=== PATIENT | male | born 1945 | race Caucasian/White ===

== ENCOUNTER → 2018-09-19 | Outpatient (CLI) | payer OTHER, BC ==
[~2018-09-19] MED LIST: BUSPIRONE HCL10 MG PO; BYSTOLIC 5 MG5 M1 PO; CLONAZEPAM 0.50.5 M1 PO; FISH OIL 1,001000 M2 PO; FISH OIL 1,2001 EAC4 PO; FLEXERIL PO; HYDROCODON-ACE1 EAC5 PO; LEXAPRO 10 MG T10 M2 PO; LEXAPRO20 MG PO; LIPITOR 20 MG T20 M1 PO; LIVALO1 MG PO; LIVALO2 MG PO; LUBRICANT EYE D15 M2 OPHTHALMIC; MULTIVITAMINS PO; NORCO 10-325 T1 EACH PO; NORCO 5-325 TA1 EACH PO; OXYCONTIN10 M1 PO; PRENATAL PO; Prenatal Vitamin PO; ROBAXIN 750 MG750 M1 PO; XANAX 0.25 MG0.25 MG PO; XANAX 0.5 MG0.5 M1 PO; XANAX 0.5 MG0.5 MG PO
--- NOTE | 2018-09-19 17:00 | EKG ---
[place] [address] [facility] [place] [address] ELECTROCARDIOGRAM REPORT Name: NIKKIE RANDLE Room #: REG [facility]#: [id number] ������������������ Admission: 09/19/18 ������������������ Attend Phys: Tanmay Murillo MD Discharge: ������������������ Date of : 47 Report #: [id number] ����������������������������������������������������������������� [id number] THIS REPORT FOR: //name// [facility] Test Date: 2018-09-19 Test Time: 10:33:59 Pat Name: NIKKIE RANDLE Department: Room: Gender: Clinical Pharmacy Specialist: RANDOLPH : 1945 Requested By: Tanmay Murillo Order Number: [id number] MD: Cecilio Schilling Measurements Intervals [place] Rate: 57 P: 35 OK: 142 QRS: -6 QRSD: 109 T: 38 QT: 471 QTc: 459 Interpretive Statements Sinus bradycardia Abnormal R-wave progression, early transition Compared to ECG 03/12/2015 11:56:43 No significant changes Electronically Signed On 09-19-2018 17:00:12 CDT by Cecilio Schilling [email or web address] ��������������������������������������������� <ELECTRONICALLY SIGNED> ���������������������������������������� By: Cecilio Schilling MD, [facility] ��������������������������������������������� 09/19/18 1700 1033 [id number] Cecilio Schilling MD, [facility] /EPI
== END | disposition home or self-care (01) ==
LOC: LITH 10:05
DX: N20.1 Calculus of ureter (principal); I10 Essential (primary) hypertension; E78.00 Pure hypercholesterolemia, unspecified; F41.9 Anxiety disorder, unspecified; Z85.51 Personal history of malignant neoplasm of bladder; Z98.890 Other specified postprocedural states; Z79.899 Other long term (current) drug therapy

== ENCOUNTER → 2021-05-25 | Outpatient (CLI) | payer OTHER, BC | LOC: SJCVC 13:50 | PROVIDERS: ATTEND Internal Medicine Cardiovascular Disease | DX: Z01.810 Encounter for preprocedural cardiovascular examination (principal); I10 Essential (primary) hypertension; E78.00 Pure hypercholesterolemia, unspecified; F41.9 Anxiety disorder, unspecified; F31.9 Bipolar disorder, unspecified; E78.5 Hyperlipidemia, unspecified; Z87.891 Personal history of nicotine dependence; Z79.899 Other long term (current) drug therapy ==